=== PATIENT | female | born 1965 | race Caucasian/White ===

== ENCOUNTER → 2018-02-18 | Outpatient (CLI) | payer BC ==
--- NOTE | 2018-02-20 11:25 | MM ---
Reason for exam: screening (asymptomatic). Last mammogram was performed 3 years and 4 months ago. Physical Findings: A clinical breast exam by your physician is recommended on an annual basis and results should be correlated with mammographic findings. MG 3D Screening Mammo W/Cad Bilateral CC and MLO view(s) were taken. Prior study comparison: October 16, 2014, bilateral MG screening mammo w CAD. October 12, 2013, bilateral digital screening mammo w/CAD. The breast tissue is heterogeneously dense. This may lower the sensitivity of mammography. There is a new 3mm group of calcifications in the left upper outer quadrant at posterior depth with adjacent focal asymmetry overlying the pectoralis muscle. No suspicious abnormality in the right breast. ASSESSMENT: Incomplete: need additional imaging evaluation, BI-RAD 0 RECOMMENDATION: Special view mammogram of the left breast. [facility] will attempt to contact patient to return for supplemental views.
== END | disposition home or self-care (01) ==
LOC: RADMAMWWP 08:05
PROVIDERS: ATTEND Family Medicine
DX: Z12.31 Encounter for screening mammogram for malignant neoplasm of breast (principal)
CPT/HCPCS: 77063; 77067

== ENCOUNTER → 2018-03-06 | Outpatient (CLI) | payer BC ==
--- NOTE | 2018-03-07 09:02 | MM ---
Reason for exam: additional evaluation requested from abnormal screening. Last mammogram was performed 1 month ago. Physical Findings: Nurse did not find any significant physical abnormalities on exam. MG Work Up Mamm w CAD LT CC with magnification, LM with magnification, and LM view(s) were taken of the left breast. Prior study comparison: February 18, 2018, bilateral MG 3d screening mammo w/cad. October 16, 2014, bilateral MG screening mammo w CAD. There are scattered fibroglandular densities. New elongated mass with layering milk of calcium at the 2-3 o'clock position. Ultrasound recommended. Heterogeneous calcifications 3-4 o'clock are new. These results were verbally communicated with the patient and result sheet given to the patient on 03/06/18. ASSESSMENT: Incomplete: need additional imaging evaluation, BI-RAD 0 RECOMMENDATION: Ultrasound of the left breast. (2-4 o'clock)
--- NOTE | 2018-03-07 09:40 | USB ---
Reason for exam: additional evaluation requested from abnormal screening. US Breast Workup Limited LT Left limited breast ultrasound including focal area of concern, retroareolar and axilla demonstrates a 1.1 x 0.3 x 1.4cm oval, cystic lesion at 3 o'clock, benign finding. These results were verbally communicated with the patient and result sheet given to the patient on 03/06/18. ASSESSMENT: Suspicious, BI-RAD 4 RECOMMENDATION: Stereotactic core biopsy of the left breast. (calcifications) Called Dr. Gutierrez with mammographic findings and has scheduled an appointment for the patient for 03/23/18 at 10:[address] Dong. PRELIMINARY REPORT CALLED AND FAXED TO DR. DONG ON 03/07/18.
== END | disposition home or self-care (01) ==
LOC: RADMAMWWP 14:50
PROVIDERS: ATTEND Family Medicine
DX: R92.8 Other abnormal and inconclusive findings on diagnostic imaging of breast (principal)
CPT/HCPCS: 77065

== ENCOUNTER → 2018-04-14 | Outpatient (CLI) | payer BC ==
[2018-04-14 12:05] VITALS: BP 122/81; PULSE 74; TEMP 97.7; BMI 34.2
--- NOTE | 2018-04-14 12:45 | P.GSHP ---
History of Present Illness H&P Date: 04/14/18 The patient is a 52-year-old white female who on routine mammogram was noted to have an area of calcification in the left breast of concern. She additionally has an area of calcification in the right breast for which magnification views have been recommended. The patient is not felt anything of concern in either breast. The patient has no nipple discharge or changes of concern. Family history: 1. sister; colon, and breast cancer 2. mother: ovarian cancer menarche: 18 : 3, children 3, first at 29, breast fed: all three about 1 year menopause: still having periods but irregular BCP; no Hormones: none social history: smoke: none Alcohol: Occasionally Drugs: Negative Past surgical history: 1. Gallbladder Past medical history: 1. overweight ROS: HEENT: Negative, vertigo Lungs: Negative Heart: Negative GI: Negative : negative - Constitutional Comment: hot flashes Constitutional: Denies chills, Denies fever - EENT Eyes: bilateral as per HPI Ears: deny: decreased hearing, tinnitus - Breasts Breasts: bilateral: as per HPI - Cardiovascular Cardiovascular: Denies chest pain, Denies shortness of breath - Respiratory Respiratory: Denies cough, Denies 7 - Gastrointestinal Gastrointestinal: Denies abdominal pain, Denies diarrhea, Denies nausea, Denies vomiting - Genitourinary (Female) Genitourinary: Denies dysuria, Denies hematuria - Musculoskeletal Comment: no arthritis planter fasciatis - Integumentary Integumentary: Denies pruritus, Denies rash - Neurological Comment: pinch nerve in her back and gets adjusted at chiropractic, this results in numbness and tingling in both of her hands Neurological: Reports numbness, Reports paralysis, Denies weakness - Psychiatric Psychiatric: Denies anxiety, Denies depression - Endocrine Endocrine: Denies fatigue, Denies weight change - Hematologic/Lymphatic Comment: none - Allergic/Immunologic Comment: PCN Allergic/Immunologic: Reports as per HPI Past Medical History History of Any Multi-Drug Resistant Organisms: None Reported Past Surgical History: Cholecystectomy Smoking Status: Never smoker - Past Family History Mother Family Medical History: Cancer Additional Family Medical History / Comment(s): ovarian cancer 1990 Sister(s) Family Medical History: Cancer Additional Family Medical History / Comment(s): BREAST CANCER 2017 Medications and Allergies Home Medications Medication Instructions Recorded Confirmed Type Venlafaxine HCl ER [Effexor Xr] 75 mg PO AC-LUNCH 04/14/18 04/14/18 History Allergies Allergy/AdvReac Type Severity Reaction Status Date / Time Penicillins Allergy Rash/Hives Unverified 04/14/18 12:08 Surgical - Exam Vital Signs Temp Pulse BP Pulse Ox 97.7 F 74 122/81 96 04/14/18 12:02 04/14/18 12:02 04/14/18 12:02 04/14/18 12:02 - General well developed, well nourished, no distress, obese - Eyes normal ocular movement - ENT no hearing loss, no congestion - Neck no masses, trachea midline, no lymphadectomy - Respiratory normal respiratory effort, clear to auscultation - Cardiovascular Rhythm: regular Heart Sounds: normal: S1, S2 - Abdomen Abdomen: soft, non tender, no guarding, no rigid, no rebound - Integumentary no rash - Neurologic no disoriented, no combative - Psychiatric oriented to time, oriented to person, oriented to place, speech is normal, memory intact Results Mammogram reviewed with Dr. Castillo, patient to have stereo biopsy of the left breast, mag views of some calcifications in the right breast which may result and recommendations severe biopsy of the right breast as well Assessment and Plan Assessment: Impression/plan:. 1. Mammographic abnormality left breast. Stero-Biopsy recommended 2. Questionable mammographic change in right breast mag views being obtained possible recommendation for stereo biopsy Plan: 1. Stereotactic biopsy of the left breast 2. Magnification views of the right breast possible recommendation as stereo biopsy of the right breast This and benefits of stereo biopsy were discussed with the patient. These include bleeding infection and inability to biopsy this site. The patient understands and wishes to proceed. Cc: Dr. Gutierrez
--- NOTE | 2018-04-17 07:43 | MM ---
Reason for exam: additional evaluation requested from abnormal screening. Last mammogram was performed 1 month ago. MG 3D Diag Mammo W/Cad RT Spot compression CC, spot compression MLO, and LM view(s) were taken of the right breast. Prior study comparison: March 06, 2018, left breast MG work up mamm w CAD LT. February 18, 2018, bilateral MG 3d screening mammo w/cad. The breast tissue is heterogeneously dense. This may lower the sensitivity of mammography. New regional punctate calcifications upper outer quadrant can be reassessed in 6 months. These results were verbally communicated with the patient and result sheet given to the patient on 04/14/18. ASSESSMENT: Probably benign, BI-RAD 3 RECOMMENDATION: Follow-up diagnostic mammogram of the right breast in 6 months.
== END | disposition home or self-care (01) ==
LOC: WWCWWP 11:54
PROVIDERS: ATTEND Surgery
DX: R92.8 Other abnormal and inconclusive findings on diagnostic imaging of breast (principal)
CPT/HCPCS: 77061; 77065

== ENCOUNTER → 2018-04-27 | Day surgery (SDC) | payer BC ==
[2018-04-27 07:23] VITALS: RESP 16; BMI 34.3
[2018-04-27 08:41] VITALS: BP 132/84; PULSE 77; TEMP 97.7
--- NOTE | 2018-04-27 08:48 | PCN ---
PROCEDURE NOTE The patient is a 52-year-old white female who on routine mammogram was noted to have an area of heterogeneous calcifications in the 3 to 4 o'clock position of the left breast. Radiographs were reviewed and it was recommended that she undergo a left breast stereotactic core biopsy. She additionally had a second area of calcification, which was felt to be non-worrisome in the left breast and in the right breast repeat mammogram in 6 months' time was recommended. On multi-positional examination of the breast, no dominant mass or nodules of concern were identified in either breast. Radiographs were reviewed as stated. The patient was therefore taken to the stereotactic core unit room after risks and benefits of the procedure were discussed with the patient. The approach to identify the lesion was CC from below. The lesion was identified stereotactically. The breast was prepped using Betadine and 1% lidocaine was used to anesthetize the area of the skin. Needle was driven to the correct coordinates and multiple core biopsies were obtained. This was performed with a 9-gauge vacuum assisted core biopsy needle. Radiograph of the specimen revealed that the calcifications were in the specimen. Following this, a SecurMark top-silk top hat body maker was placed. The patient tolerated the procedure in stable condition. No immediate complications were noted. The patient will follow up next week with Dr. Caballero for pathology results. The specimen was sent for pathology. Confirmation that the SecurMark was in the correct place was obtained radiographically. MMODL / IJN: [id number] /
--- NOTE | 2018-04-27 09:35 | MM ---
EXAMINATION TYPE: MG stereo VAD BX LT DATE OF EXAM: 04/27/2018 COMPARISON: Prior mammogram March 06, 2018 and older studies. CLINICAL HISTORY: Abnormal mammogram TECHNIQUE: Stereotactic guided core biopsy of left breast. FINDINGS: The procedure of stereotactic guided core biopsy was explained to the patient. Benefits, alternatives, and risks were discussed. An informed consent was then obtained. The shortness pathway for biopsy was chosen. Shortness pathway was inferior approach. I performed the localization, then surgeon, Dr. Caballero performed the remainder of the procedure. A vacuum assisted biopsy gun was used to obtain multiple core samples. The patient tolerated the procedure well without any immediate complication. The patient was kept in the radiology department for short stay after the procedure and then discharged home in stable condition. Targeted calcifications are identified in specimen mammogram. Post biopsy mammogram shows the clip to appear in satisfactory position relative to the targeted area of concern on the preprocedure images. IMPRESSION: SUCCESSFUL, UNCOMPLICATED STEREOTACTIC GUIDED CORE BIOPSY OF AREA OF CONCERN IN THE LEFT BREAST, FULL PATHOLOGY RESULTS TO FOLLOW. Low index of suspicion noted at time of procedure.(Fairly Benign Morphology) Pathology Results: Benign CORE BIOPSY, LEFT BREAST: Lobular hyperplasia, focal, without atypia. Duct ectasia, lobular dilatation and apocrine metaplasia. An intramammary lymph node is present. Microcalcifications are present. Recommendation Follow up mammogram of the left breast in 6 months. PEGGY
== END ==
LOC: RADMAMWWP 07:05
PROVIDERS: ATTEND Surgery
DX: N62 Hypertrophy of breast (principal); N60.42 Mammary duct ectasia of left breast; N60.82 Other benign mammary dysplasias of left breast; R92.0 Mammographic microcalcification found on diagnostic imaging of breast; Z85.3 Personal history of malignant neoplasm of breast; Z88.1 Allergy status to other antibiotic agents
CPT/HCPCS: 88305; 19081; A4648; J2001

== ENCOUNTER → 2018-05-05 | Outpatient (CLI) | payer BC ==
[2018-05-05 08:40] VITALS: BP 125/78; PULSE 75; TEMP 97.4; BMI 34.3
--- NOTE | 2018-05-05 08:52 | P.PN ---
Progress Note - Text Progress Note Date: 05/05/18 Patient is status post left breast stereotactic core biopsy 54448. Pathology revealed lobular hyperplasia, focal, without atypia, the patient has no complaints. Physical examination: Biopsy site clean and dry minimal ecchymosis Impression: 1. Stereotactic core biopsy benign Plan: 1. Repeat left breast mammogram and physician exam in 6 months time. Cc: David, ([place])
== END | disposition home or self-care (01) ==
LOC: WWCWWP 08:26
PROVIDERS: ATTEND Surgery
DX: Z53.9 Procedure and treatment not carried out, unspecified reason (principal)

== ENCOUNTER 2018-06-14 10:14 | Day surgery (SDC) | payer BC ==
[2018-06-09 13:11] VITALS: BMI 35.5
[~2018-06-14 10:14] MED LIST: LACTATED RINGERS 1,000 ML IV SCH
[2018-06-14 10:35] VITALS: TEMP 97.5
[2018-06-14] MEDS ORDERED: LACTATED RINGERS 1,000 ML IV ONE (10:37)
[2018-06-14] MEDS ORDERED: LIDOCAINE 1% 20 ML VIAL (10MG/ML) FOR IV START INTRADERMA ONE (10:37)
[2018-06-14] MEDS ORDERED: LIDOCAINE 1% INJ 10MG/ML (20 ML MDV) ONE (11:14)
[2018-06-14] MEDS ORDERED: PROPOFOL 10 MG/ML 20 ML VIAL IV ONE (11:14)
--- NOTE | 2018-06-14 11:32 | P.PCN ---
Date of Procedure: 06/14/18 Procedure(s) Performed: BRIEF HISTORY: Patient is a 53-year-old pleasant white female, scheduled for an elective colonoscopy as a part of screening for colorectal neoplasia. PROCEDURE PERFORMED: Colonoscopy. PREOPERATIVE DIAGNOSIS: Screening for colon cancer. IV sedation per Anesthesia. PROCEDURE: After informed consent was obtained, the patient, was brought into the endoscopy unit. IV sedation was administered by Anesthesia under continuous monitoring. Digital rectal examination was normal. Initially the Olympus CF- 160 flexible video colonoscope was then inserted in the rectum, gradually advanced into the cecum without any difficulty. Careful examination was performed as the scope was gradually being withdrawn. Ileocecal valve and the appendiceal orifice were visualized and appeared normal. Prep was excellent. Mucosa of the cecum, ascending colon, transverse colon, descending colon, sigmoid colon, and rectum appeared normal. Scattered sigmoid diverticulosis seen. Retroflexion was performed in the rectum and no lesions were seen. The patient tolerated the procedure well. IMPRESSION: Normal-appearing colon from rectum to cecum with no evidence of colorectal neoplasia. Scattered sigmoid diverticulosis RECOMMENDATIONS: Findings of this examination were discussed with the patient as well as her family. She was advised to have a repeat screening colonoscopy in 10 years.
[2018-06-14 11:36] VITALS: RESP 16
[2018-06-14 12:08] VITALS: BP 136/75; PULSE 78
== END 2018-06-14 12:32 | disposition home or self-care (01) ==
LOC: ORWHC2ENDO 10:14
PROVIDERS: ATTEND Internal Medicine Gastroenterology
DX: Z12.11 Encounter for screening for malignant neoplasm of colon (principal); K57.30 Diverticulosis of large intestine without perforation or abscess without bleeding; J45.909 Unspecified asthma, uncomplicated; I49.3 Ventricular premature depolarization; Z79.899 Other long term (current) drug therapy; Z88.0 Allergy status to penicillin; Z88.1 Allergy status to other antibiotic agents; E66.9 Obesity, unspecified
CPT/HCPCS: 93005; J2001; J2704; G0121

== ENCOUNTER → 2018-11-03 | Outpatient (CLI) | payer BC ==
--- NOTE | 2018-11-07 08:51 | MM ---
Reason for exam: follow-up at short interval from prior study. Last mammogram was performed 7 months ago. History: Family history of breast cancer in sister at age 62. Benign MG stereo VAD BX LT of the left breast, April 27, 2018. Physical Findings: Nurse did not find any significant physical abnormalities on exam. MG 3D Diag Mammo W/Cad LT CC, MLO, and spot compression CC view(s) were taken of the left breast. Prior study comparison: April 14, 2018, right breast MG 3d diag mammo w/cad RT. March 06, 2018, left breast MG work up mamm w CAD LT. There are scattered fibroglandular densities. Previous left breast mammotome biopsy. No significant new findings when compared with prior studies. These results were verbally communicated with the patient and result sheet given to the patient on 11/03/18. ASSESSMENT: Benign, BI-RAD 2 RECOMMENDATION: Return to routine screening mammogram schedule for both breasts.
== END ==
LOC: RADMAMWWP 08:30
PROVIDERS: ATTEND Surgery
DX: R92.8 Other abnormal and inconclusive findings on diagnostic imaging of breast (principal)
CPT/HCPCS: 77061; 77065

== ENCOUNTER → 2018-11-10 | Outpatient (CLI) | payer BC ==
[2018-11-10 15:51] VITALS: BP 124/84; PULSE 76; RESP 18; TEMP 97.8; BMI 38.7
--- NOTE | 2018-11-10 16:17 | P.PN ---
Subjective Progress Note Date: 11/10/18 Principal diagnosis: Status post left breast stereotactic biopsy April 2018 Brisa is a 53-year-old white female who is status post left breast are detected core biopsy in April 2018. The pathology was benign at that time. The patient had a left breast mammogram done October 2018 and this is felt to be benign BIRADS 2. Bilateral screening mammogram to be performed on February 2019. The patient has no concerns about her breast at this time. Family History: 1. sister: colon and breast cancer 2. mother: ovarian cancer Past Medical History: weight gain Past Surgical History: 1. gallbaldder Objective - Vital Signs Vital signs: Vital Signs Temp 97.8 F 11/10/18 15:48 Pulse 76 11/10/18 15:48 Resp 18 11/10/18 15:48 BP 124/84 11/10/18 15:48 Pulse Ox 99 11/10/18 15:48 Intake & Output 11/09/18 11/10/18 11/10/18 18:59 06:59 18:59 Weight 108.862 kg - Constitutional General appearance: Present: obese - EENT Eyes: Present: EOMI ENT: Present: hearing grossly normal - Neck Neck: Present: normal ROM - Respiratory Respiratory: bilateral: CTA - Cardiovascular Rhythm: regular Heart sounds: normal: S1, S2 - Gastrointestinal General gastrointestinal: Present: soft - Integumentary Integumentary Comment(s): normal turgor - Psychiatric Psychiatric: Present: A&O x's 3, appropriate affect, intact judgment & insight - Allied health notes Allied Health Notes Comment(s): breast exam: right breast: multipositional exam of the right breast no masses right axilla: no adenopathy of concern left breast: multipositional exam no masses left axilla: no adenopathy of concern Assessment and Plan Assessment: Impression: 1. fibrocystic breast bilateral Plan: 1. bilateral mammogram February 2019 with exam CC: Brenda
== END | disposition home or self-care (01) ==
LOC: WWCWWP 15:38
PROVIDERS: ATTEND Surgery
DX: Z53.9 Procedure and treatment not carried out, unspecified reason (principal)

== ENCOUNTER → 2019-05-10 | Outpatient (CLI) | payer BC ==
--- NOTE | 2019-05-10 10:22 | MM ---
Reason for exam: screening (asymptomatic). Last mammogram was performed 6 months ago. History: Family history of breast cancer in sister at age 62. Benign MG stereo VAD BX LT of the left breast, April 27, 2018. Physical Findings: A clinical breast exam by your physician is recommended on an annual basis and results should be correlated with mammographic findings. MG 3D Screening Mammo W/Cad Bilateral CC and MLO view(s) were taken. Prior study comparison: November 03, 2018, left breast MG 3d diag mammo w/cad LT. April 14, 2018, right breast MG 3d diag mammo w/cad RT. The breast tissue is heterogeneously dense. This may lower the sensitivity of mammography. No suspicious abnormality. Left biopsy marker noted. No significant changes when compared with prior studies. ASSESSMENT: Negative, BI-RAD 1 RECOMMENDATION: Routine screening mammogram of both breasts in 1 year.
== END | disposition home or self-care (01) ==
LOC: RADMAMWWP 06:58
PROVIDERS: ATTEND Surgery
DX: Z12.31 Encounter for screening mammogram for malignant neoplasm of breast (principal)
CPT/HCPCS: 77063; 77067

== ENCOUNTER → 2019-06-28 | Outpatient (CLI) | payer BC ==
[2019-06-28 15:40] VITALS: BP 136/83; PULSE 91; RESP 16; TEMP 97.7; BMI 41.9
--- NOTE | 2019-06-28 16:10 | P.PN ---
Subjective Progress Note Date: 06/28/19 Brisa is a 54-year-old white female status post area biopsy of the left breast approximately a year ago. Pathology was benign. She subsequently had a bilateral mammogram performed on this was benign BIRADS 1. An routine screening of both breasts in 1 year was recommended. The patient has no co mplaints of pain masses skin changes or nipple discharge in her breast at this time. Family history: 1. sister; colon, and breast cancer 2. mother: ovarian cancer menarche: 18 : 3, children 3, first at 29, breast fed: all three about 1 year menopause: still having periods but irregular BCP; no Hormones: none social history: smoke: none Alcohol: Occasionally Drugs: Negative Past surgical history: 1. Gallbladder Past medical history: 1. overweight ROS: HEENT: Negative, vertigo Lungs: Negative Heart: Negative GI: Negative : negative - Constitutional Comment: hot flashes Constitutional: Denies chills, Denies fever - EENT Eyes: bilateral as per HPI Ears: deny: decreased hearing, tinnitus - Breasts Breasts: bilateral: as per HPI - Cardiovascular Cardiovascular: Denies chest pain, Denies shortness of breath - Respiratory Respiratory: Denies cough - Gastrointestinal Gastrointestinal: Denies abdominal pain, Denies diarrhea, Denies nausea, Denies vomiting - Genitourinary (Female) Genitourinary: Denies dysuria, Denies hematuria - Musculoskeletal Comment: no arthritis planter fasciatis improved - Integumentary Integumentary: Denies pruritus, Denies rash - Neurological Comment: pinch nerve in her back and gets adjusted at chiropractic, this results in numbness and tingling in both of her hands Neurological: Reports numbness, Reports paralysis, Denies weakness - Psychiatric Psychiatric: anxiety, depression; related to friend dying - Endocrine Endocrine: Denies fatigue, Denies weight change - Hematologic/Lymphatic Comment: none - Allergic/Immunologic Comment: PCN Allergic/Immunologic: Reports as per HPI Past Medical History History of Any Multi-Drug Resistant Organisms: None Reported Past Surgical History: Cholecystectomy Smoking Status: Never smoker - Past Family History Mother Family Medical History: Cancer Additional Family Medical History / Comment(s): ovarian cancer 1990 Sister(s) Family Medical History: Cancer Additional Family Medical History / Comment(s): BREAST CANCER 2018 Objective - Vital Signs Vital signs: Vital Signs Temp 97.7 F 06/28/19 15:35 Pulse 91 06/28/19 15:35 Resp 16 06/28/19 15:35 BP 136/83 06/28/19 15:35 Pulse Ox 98 06/28/19 15:35 Intake & Output 06/27/19 06/28/19 06/28/19 18:59 06:59 18:59 Weight 117.934 kg - Exam BMI 42 - Constitutional General appearance: Present: obese - EENT Eyes: Present: EOMI ENT: Present: hearing grossly normal - Neck Neck: Present: normal ROM - Respiratory Respiratory: bilateral: CTA - Cardiovascular Rhythm: regular Heart sounds: normal: S1, S2 - Gastrointestinal General gastrointestinal: Present: soft - Integumentary Integumentary: Present: normal turgor - Musculoskeletal Musculoskeletal: Present: gait normal - Psychiatric Psychiatric: Present: A&O x's 3, appropriate affect, intact judgment & insight - Additional findings Additional findings: breast exam: right breast: Multiple positional exam no dominant masses or nodules of concern Right axilla: No adenopathy of concern Left breast: Multiple positional exam no dominant masses or nodules of concern Left axilla: No adenopathy of concern Assessment and Plan Assessment: Impression: 1. Patient status post stereotactic core biopsy of the left breast in the past this was benign 2. Recent mammogram bilateral BIRADS 1 3. Fibrocystic breast changes 4. BMI 42 5. depression Plan: 1. Repeat bilateral mammogram in 1 year 2. We have recommended weight reduction Cc: Dr. Gutierrez
== END | disposition home or self-care (01) ==
LOC: WWCWWP 15:20
PROVIDERS: ATTEND Surgery
DX: Z53.9 Procedure and treatment not carried out, unspecified reason (principal)

== ENCOUNTER → 2019-09-01 | Outpatient (CLI) | payer BC ==
--- NOTE | 2019-09-01 17:53 | MR ---
EXAMINATION TYPE: MR knee LT wo con DATE OF EXAM: 09/01/2019 COMPARISON: None HISTORY: Left knee pain TECHNIQUE: Multiplanar, multisequence imaging of the left knee is performed without IV contrast. FINDINGS: There is moderate knee joint effusion. There is slight waviness of the anterior cruciate ligament. Th e posterior cruciate ligament appears intact. There is 3 x 1 cm popliteal cyst. There is narrowing of the medial joint space. There is spurring of the medial femoral and tibial condyles. There is increased signal within the posterior horn of the me dial meniscus. There is small vertical defect through the anterior horn of the lateral meniscus. Patella appears int act. I see no focal bone destruction. IMPRESSION: There is probably a partial tear of the anterior cruciate ligament. Moderate knee joint effusion and popliteal cyst. Intrasubstance tear of the posterior horn medial meniscus without extension to the articular surface. Small vertical tear of the anterior horn lateral meniscus. No fracture. Mild osteoarthritic narrowin g of the medial joint space.
== END | disposition home or self-care (01) ==
LOC: RADMRIMAIN 11:43
PROVIDERS: ATTEND Orthopaedic Surgery
DX: S83.242A Other tear of medial meniscus, current injury, left knee, initial encounter (principal); S83.282A Other tear of lateral meniscus, current injury, left knee, initial encounter; M17.12 Unilateral primary osteoarthritis, left knee

== ENCOUNTER → 2020-05-12 | Outpatient (CLI) | payer BC ==
--- NOTE | 2020-05-15 14:50 | MM ---
Reason for exam: screening (asymptomatic). Last mammogram was performed 1 year ago. History: Family history of breast cancer in sister at age 62. Benign MG stereo VAD BX LT of the left breast, April 27, 2018. Took hormonal contraceptives for 6 months. Physical Findings: A clinical breast exam by your physician is recommended on an annual basis and results should be correlated with mammographic findings. MG 3D Screening Mammo W/Cad Bilateral CC and MLO view(s) were taken. Prior study comparison: May 10, 2019, bilateral MG 3d screening mammo w/cad. November 03, 2018, left breast MG 3d diag mammo w/cad LT. There are scattered fibroglandular densities. Finding: There are indeterminate calcifications in the 12 o'clock position of the right breast 5cm from the nipple with density. New finding since May 10, 2019 and November 03, 2018. ASSESSMENT: Incomplete: need additional imaging evaluation, BI-RAD 0 RECOMMENDATION: Special view mammogram of the right breast. [facility] will attempt to contact patient to return for supplemental views.
== END | disposition home or self-care (01) ==
LOC: RADMAMWWP 07:26
PROVIDERS: ATTEND Surgery
DX: Z12.31 Encounter for screening mammogram for malignant neoplasm of breast (principal)
CPT/HCPCS: 77063; 77067

== ENCOUNTER → 2020-05-26 | Outpatient (CLI) | payer BC ==
--- NOTE | 2020-05-27 11:04 | MM ---
Reason for exam: additional evaluation requested from abnormal screening. Last mammogram was performed less than 1 month ago. History: Family history of breast cancer in sister at age 62. Benign MG stereo VAD BX LT of the left breast, April 27, 2018. Took hormonal contraceptives for 6 months. Physical Findings: Nurse did not find any significant physical abnormalities on exam. MG 3D Work Up W/Cad RT CC with magnification, LM with magnification, and LM view(s) were taken of the right breast. Prior study comparison: May 12, 2020, bilateral MG 3d screening mammo w/cad. May 10, 2019, bilateral MG 3d screening mammo w/cad. Finding: There are persistent coarse heterogeneous, regional and grouped calcifications in the upper outer quadrant, middle position of the right breast. These results were verbally communicated with the patient and result sheet given to the patient on 05/26/20. ASSESSMENT: Incomplete: need additional imaging evaluation, BI-RAD 0 RECOMMENDATION: Stereotactic core biopsy of the right breast. (2 sites) Called office with mammographic findings and has scheduled an appointment for the patient for 07/03/20 at 2:[address] Caballero. Biopsy scheduled for 06/19/20 at 8:00. PRELIMINARY REPORT CALLED AND FAXED TO DR. CABALLERO ON 05/27/20.
== END | disposition home or self-care (01) ==
LOC: RADMAMWWP 07:23
PROVIDERS: ATTEND Surgery
DX: R92.8 Other abnormal and inconclusive findings on diagnostic imaging of breast (principal)
CPT/HCPCS: 77061; 77065

== ENCOUNTER → 2020-06-27 | Day surgery (SDC) | payer BC ==
[2020-06-27 07:55] VITALS: RESP 16
--- NOTE | 2020-06-27 09:26 | P.PCN ---
Date of Procedure: 06/27/20 Preoperative Diagnosis: Microcalcifications of concern 2 sites in the right breast Postoperative Diagnosis: Same Procedure(s) Performed: Stereotactic core biopsy of 2 sites in the right breast Anesthesia: local Surgeon: Anahi Caballero Pathology: other (Breast tissue, both sites had calcifications which were of concern noted in the specimens) Condition: stable Disposition: same day Indications for Procedure: Mammogram revealing microcalcifications of concern at 2 sites in the right breast Operative Findings: Microcalcifications of concern noted in the radiographic specimen at both sites in the right breast Description of Procedure: The patient is a 55-year-old white female who was noted to have 2 areas of microcalcifications of concern in her right breast. It was recommended she undergo stereotactic core biopsy of both of these sites. Risk and benefits of the procedure were discussed with the patient. Alternatives such as watchful waiting open biopsy were not recommended. The patient agreed and wished to proceed. The patient was taken to the [facility] to core biopsy room. She was positioned prone on the biopsy table. A film was obtained. A lateral to medial approach was utilized. Both sites were visualized. The posterior site was approached initially as this was a fainter area of calcification. The area was targeted. The breast was prepped using Betadine. 15 mL of 1% lidocaine were used to anesthetize the area of concern. A 9-gauge vacuum-assisted core rotating biopsy needle was driven to the correct coordinates. The needle was fired. Post fire film revealed the needle to be in the correct location. 12 specimens were obtained. Radiograph of the specimen revealed the area of concern had been sampled with microcalcifications in the specimen. A secure phoebe top hat maker was placed. The patient was repositioned for the second site. Again a lateral to medial approach was utilized. A film was obtained in the area of concern was identified. The area was targeted. The breast was prepped using Betadine. 15 mL of 1% lidocaine was used to anesthetize the area of concern. A 9-gauge vacuum-assisted core rotating biopsy needle was driven to the correct coordinates. The needle was fired. Post fire films revealed the needle being the correct location. 7 specimens were obtained. Radiograph of the specimens revealed the area of concern about sampled with microcalcifications in the specimen. A 20 phoebe clip was placed to phoebe the area. The patient tolerated procedure in stable condition. Specimens were sent to pathology. Patient will follow-up with Dr. Gilliland in 1 week
[2020-06-27 09:33] VITALS: BP 128/85; PULSE 81; TEMP 98.1
--- NOTE | 2020-06-27 15:12 | MM ---
EXAMINATION TYPE: MG stereo VAD BX addl RT, MG stereo VAD BX RT DATE OF EXAM: 06/27/2020 COMPARISON: NONE CLINICAL HISTORY: Abnormal right mammogram TECHNIQUE: Stereotactic guided core biopsy of right breast x2. FINDINGS: The procedure of stereotactic guided core biopsy was explained to the patient. Benefits, a lternatives, and risks were discussed. An informed consent was then obtained. The shortness pathway for biopsy was chosen. Shortness pathway was lateral to medial approach. I per formed the localization for 2 discrete groupings of calcifications, then surgeon, Dr. Talat linton ormed the remainder of the procedure. A vacuum assisted biopsy gun was used to obtain multiple core samples of each grouping the. The patient tolerated the procedure well without any immediate complication. The patient was kept in the radiology department for short stay after the procedure and then discharged home in stable condi tion. Targeted calcifications are identified in specimen mammogram. Post biopsy digital mammogram s hows the clips to appear in satisfactory position relative to the targeted area of concern on the pre procedure images. IMPRESSION: SUCCESSFUL, UNCOMPLICATED STEREOTACTIC GUIDED CORE BIOPSY OF AREAS OF CONCERN IN THE right BREAST, FU LL PATHOLOGY RESULTS TO FOLLOW.
== END ==
LOC: RADMAMWWP 07:24
PROVIDERS: ATTEND Surgery
DX: N60.11 Diffuse cystic mastopathy of right breast (principal); N60.81 Other benign mammary dysplasias of right breast
CPT/HCPCS: 88305; 88342; 19081; 19082; A4648; J2001

== ENCOUNTER → 2020-07-03 | Outpatient (CLI) | payer BC ==
[2020-07-03 14:54] VITALS: BP 122/80; PULSE 75; RESP 18; TEMP 98.1
--- NOTE | 2020-07-03 15:31 | P.PN ---
Subjective Progress Note Date: 07/03/20 Principal diagnosis: Atypia on stereotactic core biopsy right breast Brisa is a 55-year-old white female [place] [address]. On this screening it was recommended special views of the right [place]. [place] [address]. This revealed some calcifications for which stereotactic core biopsy was recommended. 2 areas of calcifications were sampled. [place] [address]. The posterior calcifications revealed focal atypical hyperplasia and the anterior calcifications were benign fibrocystic changes. The patient has done well since her biopsy. She has no complaints related to the biopsy. Of importance is the fact that the patient underwent a left breast biopsy approximately one year ago which revealed lobular hyperplasia, no atypia. [place] [address]. Family history: 1. sister; colon, and breast cancer 2. mother: ovarian cancer menarche: 18 : 3, children 3, first at 29, breast fed: all three about 1 year menopause: still having periods but irregular BCP; no Hormones: none social history: smoke: none Alcohol: Occasionally Drugs: Negative Past surgical history: 1. Gallbladder Past medical history: 1. overweight - Constitutional Comment: hot flashes Constitutional: Denies chills, Denies fever - EENT Eyes: bilateral as per HPI Ears: deny: decreased hearing, tinnitus - Breasts Breasts: bilateral: as per HPI - Cardiovascular Cardiovascular: Denies chest pain, Denies shortness of breath - Respiratory Respiratory: Denies cough - Gastrointestinal Gastrointestinal: Denies abdominal pain, Denies diarrhea, Denies nausea, Denies vomiting - Genitourinary (Female) Genitourinary: Denies dysuria, Denies hematuria - Musculoskeletal Comment: no arthritis planter fasciatis improved - Integumentary Integumentary: Denies pruritus, Denies rash - Neurological Comment: pinch nerve in her back and gets adjusted at chiropractic, this results in numbness and tingling in both of her hands Neurological: Reports numbness, Reports paralysis, Denies weakness - Psychiatric Psychiatric: anxiety, depression; related to friend dying - Endocrine Endocrine: Denies fatigue, Denies weight change - Hematologic/Lymphatic Comment: none - Allergic/Immunologic Comment: PCN Allergic/Immunologic: Reports as per HPI Objective - Vital Signs Vital signs: Vital Signs Temp 98.1 F 07/03/20 14:51 Pulse 75 07/03/20 14:51 Resp 18 07/03/20 14:51 BP 122/80 07/03/20 14:51 Pulse Ox 98 07/03/20 14:51 Intake & Output 07/02/20 07/03/20 07/03/20 18:59 06:59 18:59 Weight 119.295 kg - Exam BMI 42.4 - Constitutional General appearance: Present: obese - EENT Eyes: Present: EOMI ENT: Present: hearing grossly normal - Neck Neck: Present: normal ROM - Respiratory Respiratory: bilateral: CTA - Cardiovascular Rhythm: regular Heart sounds: normal: S1, S2 - Gastrointestinal General gastrointestinal: Present: normal bowel sounds, soft - Integumentary Integumentary: Present: normal turgor - Musculoskeletal Musculoskeletal: Present: gait normal - Psychiatric Psychiatric: Present: A&O x's 3, appropriate affect, intact judgment & insight - Additional findings Additional findings: breast exam: BRA: 38B inspection: grade 3 ptosis bilateral Palpation: Right breast: Multi-positional exam fibrocystic changes, mild ecchymosis from recent stereo biopsy, no dominant masses or nodules of concern Right axilla: No adenopathy of concern Left breast: Multi-positional exam fibrocystic changes, no dominant masses or nodules of concern Left axilla: No adenopathy of concern Assessment and Plan Assessment: Impression: 1. Right breast posterior lesion atypia on stereotactic core biopsy 2. Fibrocystic breast changes 3. Family history of cancer Plan: 1. Right breast needle localization excisional biopsy of area of atypia, crescent mastopexy, Onikul plastic tissue transfer CC: Dr. Gutierrez Risks and benefits of procedure discussed with the patient. These include but are not limited to bleeding infection reaction to the anesthetic. Patient understands and wishes to proceed. Additionally she understands that there is possibility of the lesion could be missed this the needle could slip of the lesion cannot be adequately removed and this may require further surgery. If this were to be a malignancy additionally it could require further surgery. encounter 25 minutes, > 50% of time in planning and counselling
== END | disposition home or self-care (01) ==
LOC: WWCWWP 14:00
PROVIDERS: ATTEND Surgery
DX: Z53.9 Procedure and treatment not carried out, unspecified reason (principal)

== ENCOUNTER → 2021-02-26 | Outpatient (CLI) | payer BC | END | disposition home or self-care (01) | LOC: RADMRIMAIN 15:28 | PROVIDERS: ATTEND Surgery | DX: Z53.9 Procedure and treatment not carried out, unspecified reason (principal) ==

== ENCOUNTER → 2021-02-26 | Outpatient (CLI) | payer BC | END | disposition home or self-care (01) | LOC: RADMAMWWP 15:21 | PROVIDERS: ATTEND Surgery | DX: Z53.9 Procedure and treatment not carried out, unspecified reason (principal) ==

== ENCOUNTER → 2021-03-10 | Outpatient (CLI) | payer BC ==
--- NOTE | 2021-03-11 08:31 | MR ---
MRI CERVICAL SPINE: CLINICAL HISTORY: Radiculopathy. Neck pain with pain and numbness in hands for 10 years. TECHNIQUE: Multiplanar, multisequence imaging of the cervical spine is performed without IV contrast. COMPARISON: None. FINDINGS: Sagittal images of the cervical spine show the craniocervical junction to appear within nor mal limits. The cervical and upper thoracic spinal cord is normal in course, caliber, and signal. Sl ight grade 1 retrolisthesis C5 on C6. The vertebral body and intravertebral disk heights are normal. The bone marrow signal intensity is within normal limits. Axial images show C2-C3 level to appear within normal limits. Axial images at C3-C4 level shows some uncovertebral facet degenerative changes bilaterally causing a symmetric mild left-sided neural foraminal narrowing. Axial images at C4-C5 level show uncovertebral facet degenerative changes bilaterally causing mild-to -moderate left-sided neural foraminal narrowing. Axial images at C5-C6 level shows subtle spondylolisthesis with broad-based left spur disc complex mi ldly effacing the anterolateral thecal sac, mild left-sided neural foraminal narrowing is present. Axial images at C6-C7 level show focal central disc protrusion effacing anterior thecal sac, patent b ilateral neural foramina. Axial images at C7-T1 level appear within normal limits. IMPRESSION: Spondylolisthesis C5-C6 level. Multilevel degenerative changes as detailed above, largest disc herniation noted C6-C7 level.
== END | disposition home or self-care (01) ==
LOC: RADMRIMAIN 15:59
PROVIDERS: ATTEND Physician Assistant
DX: M50.123 Cervical disc disorder at C6-C7 level with radiculopathy (principal); M47.22 Other spondylosis with radiculopathy, cervical region; M43.12 Spondylolisthesis, cervical region; M99.71 Connective tissue and disc stenosis of intervertebral foramina of cervical region
CPT/HCPCS: 72141

== ENCOUNTER 2021-03-16 00:45 | Emergency (ER) | payer BC ==
[2021-03-16 00:58] VITALS: TEMP 99.2
[2021-03-16] MEDS ORDERED: SODIUM CHLORIDE 0.9% 1,000 ML IV STA ×2 (01:20→01:21)
[2021-03-16] MEDS ORDERED: FAMOTIDINE 20 MG/2 ML VIAL IV STA (01:20)
[2021-03-16] MEDS ORDERED: methylPREDNISolone SOD SUCCI 125 MG/2 ML VIAL IV STA (01:20)
[2021-03-16] MEDS ORDERED: LORazepam 2 MG/ML INJ IV STA (01:20)
--- NOTE | 2021-03-16 01:28 | ED ---
Allergic Reaction HPI - General Chief complaint: Allergic Reaction Stated complaint: Allergic Reaction Time Seen by Provider: 03/16/21 01:06 Source: patient Mode of arrival: ambulatory Limitations: no limitations - Related Data Home Medications Medication Instructions Recorded Confirmed Venlafaxine HCl ER [Effexor Xr] 75 mg PO 1700 04/14/18 07/03/20 Meloxicam [Mobic] 7.5 mg PO HS 06/28/19 07/03/20 Cholecalciferol [Vitamin D3] 2,000 unit PO HS 06/11/20 07/03/20 Cyanocobalamin (Vitamin B-12) 5,000 mcg PO HS 06/11/20 07/03/20 [Vitamin B-12] Glucosamine/Chondr Hussein A Sod [Osteo 1 each PO HS 06/11/20 07/03/20 Bi-Flex Caplet] [place]-3 Fatty Acids/Fish Oil [Fish 1 each PO HS 07/03/20 07/03/20 Oil 1,000 mg Softgel] Previous Rx's Medication Instructions Recorded Famotidine [Pepcid] 20 mg PO BID #20 tablet 03/16/21 hydrOXYzine HCL [Atarax] 25 mg PO TID PRN #15 tab 03/16/21 predniSONE 50 mg PO DAILY #5 tab 03/16/21 Allergies Allergy/AdvReac Type Severity Reaction Status Date / Time erythromycin base Allergy Rash/Hives Verified 03/16/21 00:58 [From Erythrocin] Penicillins Allergy Rash/Hives Verified 03/16/21 00:58 Review of Systems ROS Statement: Those systems with pertinent positive or pertinent negative responses have been documented in the HPI. ROS Other: All systems not noted in ROS Statement are negative. Past Medical History Past Medical History: Asthma, Pneumonia Additional Past Medical History / Comment(s): pnuemonia as a child; History of Any Multi-Drug Resistant Organisms: None Reported Past Surgical History: Breast Surgery, Cholecystectomy Additional Past Surgical History / Comment(s): left breast biopsy; Past Anesthesia/Blood Transfusion Reactions: Motion Sickness Past Psychological History: Anxiety, Panic Disorder Smoking Status: Never smoker Past Alcohol Use History: Rare Past Drug Use History: None Reported - Past Family History Mother Family Medical History: Cancer Additional Family Medical History / Comment(s): ovarian Sister(s) Family Medical History: Cancer Additional Family Medical History / Comment(s): BREAST General Exam Limitations: no limitations Course Vital Signs 03/16/21 00:56 Temperature 99.2 F Pulse Rate 140 H Respiratory 24 Rate Blood Pressure 124/66 O2 Sat by Pulse 94 L Oximetry Disposition Clinical Impression: Allergic reaction to drug, Urticaria Instructions (If sedation given, give patient instructions): Urticaria (ED) Prescriptions: hydrOXYzine HCL [Atarax] 25 mg PO TID PRN #15 tab PRN Reason: Itching Famotidine [Pepcid] 20 mg PO BID #20 tablet predniSONE 50 mg PO DAILY #5 tab Is patient prescribed a controlled substance at d/c from ED?: No Referrals: Klaudia Gutierrez DO [Primary Care Provider] - 1-2 days
[2021-03-16] MEDS ORDERED: hydrOXYzine HCL 25 MG TAB PO ONE (01:30)
[2021-03-16 03:40] VITALS: BP 139/82; PULSE 88; RESP 18
== END 2021-03-16 03:00 ==
LOC: EC 00:45
DX: L50.0 Allergic urticaria (principal); J45.909 Unspecified asthma, uncomplicated; F41.9 Anxiety disorder, unspecified; Z88.0 Allergy status to penicillin
CPT/HCPCS: 96374; 96375; 99283

== ENCOUNTER → 2021-03-26 | Outpatient (CLI) | payer BC ==
--- NOTE | 2021-03-26 10:00 | MM ---
Reason for exam: follow-up at short interval from prior study. Last mammogram was performed 10 months ago. History: Patient is postmenopausal and has history of high-risk lesion on a previous biopsy at age 55. Family history of breast cancer in sister at age 62. High risk MG stereo VAD BX addl RT of the right breast, June 27, 2020. High risk MG stereo VAD BX RT of the right breast, June 27, 2020. Benign MG stereo VAD BX LT of the left breast, April 27, 2018. Took hormonal contraceptives for 6 months. Physical Findings: Nurse did not find any significant physical abnormalities on exam. MG 3D Diag Mammo W/Cad RT CC and MLO view(s) were taken of the right breast. Prior study comparison: May 12, 2020, bilateral MG 3d screening mammo w/cad. May 10, 2019, bilateral MG 3d screening mammo w/cad. Calcifications. Previous mammotome biopsy in the right breast. No significant new findings when compared with previous films. These results were verbally communicated with the patient and result sheet given to the patient on 03/26/21. ASSESSMENT: Benign, BI-RAD 2 RECOMMENDATION: Return to routine screening mammogram schedule for both breasts.
== END | disposition home or self-care (01) ==
LOC: RADMAMWWP 08:38
PROVIDERS: ATTEND Surgery
DX: R92.1 Mammographic calcification found on diagnostic imaging of breast (principal); Z80.3 Family history of malignant neoplasm of breast; Z78.0 Asymptomatic menopausal state
CPT/HCPCS: 77061; 77065

== ENCOUNTER → 2021-04-04 | Outpatient (CLI) | payer BC ==
[2021-04-04 12:09] LABS: Basophils # (A) 0.09 X 10*3/uL (0.00-0.10); Basophils % (A) 1.1 %; Eosinophils # (A) 0.15 X 10*3/uL (0.04-0.35); Eosinophils % (A) 1.9 %; HCT 40.5 % (37.2-46.3); HGB 12.9 g/dL (12.0-15.0); Lymphocytes # (A) 2.13 X 10*3/uL (0.90-5.00); Lymphocytes % (A) 26.9 %; MCHC 31.9 g/dL (32.0-37.0); MCV 94.2 fL (80.0-97.0); Mean Platelet Volume 9.6 fL (9.5-12.2); Monocytes # (A) 0.58 X 10*3/uL (0.20-1.00); Monocytes % (A) 7.3 %; Neutrophils # (A) 4.93 X 10*3/uL (1.80-7.70); Neutrophils % (A) 62.3 %; Platelet Count 266 X 10*3/uL (140-440); RDW 13.5 % (11.5-14.5); WBC 7.92 X 10*3/uL (4.50-10.00)
[2021-04-04 13:06] LABS: African American GFR (CKD) 114.6 (60.0-200.0); Albumin/Globulin Ratio 1.6 (1.60-3.17); Anion Gap 7.4 mmol/L (4.00-12.00); BUN/Creat Ratio 22.86 Ratio (12.00-20.00); Calcium 9.4 mg/dL (8.7-10.3); Carbon Dioxide 28.6 mmol/L (21.6-31.8); Chol/HDL Ratio 3.44; Globulin 2.5 g/dL (1.6-3.3); LDL Cholesterol,Calculated 128.4 mg/dL (0.0-131.0); Non-African American GFR(CKD) 98.9 (60.0-200.0); Potassium 4.8 mmol/L (3.5-5.5); Total Bilirubin 0.5 mg/dL (0.3-1.2); Total Protein 6.5 g/dL (6.2-8.2); VLDL Calculation 20.6 mg/dL (5.00-40.00)
== END | disposition home or self-care (01) ==
LOC: LABWHC1 08:08
PROVIDERS: ATTEND Nurse Practitioner Family
DX: Z13.6 Encounter for screening for cardiovascular disorders (principal); R60.0 Localized edema
CPT/HCPCS: 36415; 80053; 80061; 85025

== ENCOUNTER → 2021-12-08 | Outpatient (CLI) | payer BC ==
--- NOTE | 2021-12-10 11:05 | MM ---
Reason for exam: screening (asymptomatic). Last mammogram was performed 8 months ago. History: Patient is postmenopausal and has history of high-risk lesion on a previous biopsy at age 55. Family history of breast cancer in sister at age 62. High risk MG stereo VAD BX addl RT of the right breast, June 27, 2020. High risk MG stereo VAD BX RT of the right breast, June 27, 2020. Benign MG stereo VAD BX LT of the left breast, April 27, 2018. Took hormonal contraceptives for 6 months. Physical Findings: A clinical breast exam by your physician is recommended on an annual basis and results should be correlated with mammographic findings. MG 3D Screening Mammo W/Cad Bilateral CC and MLO view(s) were taken. Prior study comparison: March 26, 2021, right breast MG 3d diag mammo w/cad RT. May 26, 2020, right breast MG 3d work up w/cad RT. There are scattered fibroglandular densities. Previous mammotome biopsy in the right and left breast. No significant changes when compared with prior studies. ASSESSMENT: Benign, BI-RAD 2 RECOMMENDATION: Routine screening mammogram of both breasts in 1 year.
== END | disposition home or self-care (01) ==
LOC: RADMAMWWP 16:26
PROVIDERS: ATTEND Surgery
DX: Z12.31 Encounter for screening mammogram for malignant neoplasm of breast (principal); Z80.3 Family history of malignant neoplasm of breast; Z78.0 Asymptomatic menopausal state
CPT/HCPCS: 77063; 77067

== ENCOUNTER → 2022-12-29 | Outpatient (CLI) | payer BC ==
--- NOTE | 2022-12-29 11:30 | BD ---
EXAMINATION TYPE: Axial Bone Density DATE OF EXAM: 12/29/2022 CLINICAL HISTORY: 57 years old Female. ICD-10 CODE: Z79.890 HORMONE REPLACEMENT THERAPY Height: 65.25 Weight: 240 FRAX RISK QUESTIONS: History of Fracture in Adulthood: no Secondary Osteoporosis: no Rheumatoid Arthritis: no RISK FACTORS HISTORY OF: Family History of Osteoporosis: yes, mother Active: yes Diet low in dairy products/other sources of calcium: no Postmenopausal woman: yes Lost more than 2 inches in height since high school: no Frequent falls: no Poor Health: no MEDICATIONS: Additional Medications: yes anastrozole treatment 2 year, anti depressant, Additional History: yes ADH EXAM MEASUREMENTS: Bone mineral densitometry was performed using the [email or web address] System. Bone mineral density as measured about the Lumbar spine is: ----- L1-L4(G/cm2): 1.036 T Score Values are as follows: ----- L1: -2.1 ----- L2: -1.7 ----- L3: -0.5 ----- L4: -0.7 ----- L1-L4: -1.2 Z Score Values are as follows: ----- L1: -2.4 ----- L2: -2.0 ----- L3: -0.9 ----- L4: -1.0 ----- L1-L4: -1.5 Bone mineral density baseline Bone mineral density about the R hip (g/cm2): 1.031 Bone mineral density about the L hip (g/cm2): 0.995 T Score values are as follows: -----R Neck: -0.7 -----L Neck: -1.0 -----R Total: 0.2 -----L Total: -0.1 Z Score values are as follows: -----R Neck: -0.4 -----L Neck: -0.8 -----R Total: 0.0 -----L Total: -0.3 Bone mineral density baseline FRAX%s: The graph provided illustrates a 5.3% chance for a major osteoporotic fx and a 0.2% chance fo r the hips probability for fx in 10 years time. IMPRESSION: Osteopenia (T Score between -2.5 and -1). There is slightly increased risk of fracture and the patient may be considered for treatment. Re-Screen 2-5 years. NOTE: T-SCORE=SD OF THE YOUNG ADULT MEAN.
--- NOTE | 2022-12-29 13:49 | MM ---
Reason for Exam: Screening (asymptomatic). Last mammogram was performed 1 year(s) and 1 month(s) ago. Patient History: Menarche at age 17. First Full-Term at age 29. Postmenopausal. Patient has history of breast feeding. Hormonal Contraceptives for 6 months. 06/27/2020, High risk Core Biopsy on the right side. 06/27/2020, High risk Core Biopsy on the right side. 04/27/2018, Benign Core Biopsy on the left side. Sister had breast cancer, age 62. Risk Values: Peyton 5 year model risk: 3.2%. NCI Lifetime model risk: 20.6%. Prior Study Comparison: 05/26/2020 Right Diagnostic Mammogram, [facility]. 03/26/2021 Right Diagnostic Mammogram, [facility]. 12/08/2021 Bilateral Screening Mammogram, [facility]. Tissue Density: There are scattered fibroglandular densities. Analyzed By CAD. Overall Assessment: Incomplete: need additional imaging evaluation, BI-RAD 0 Management: Diagnostic Breast Ultrasound of the right breast. Electronically signed and approved by: Renny Traylor M.D.
== END | disposition home or self-care (01) ==
LOC: RADMAMWWP 07:06
PROVIDERS: ATTEND Surgery
DX: Z12.31 Encounter for screening mammogram for malignant neoplasm of breast (principal); M85.89 Other specified disorders of bone density and structure, multiple sites; Z91.89 Other specified personal risk factors, not elsewhere classified; Z79.890 Hormone replacement therapy; Z78.0 Asymptomatic menopausal state; Z80.3 Family history of malignant neoplasm of breast
CPT/HCPCS: 77063; 77067; 77080

== ENCOUNTER → 2023-01-14 | Outpatient (CLI) | payer BC ==
--- NOTE | 2023-01-14 15:30 | USB ---
Reason for Exam: Additional evaluation requested from abnormal screening. Patient History: Menarche at age 17. First Full-Term at age 29. Postmenopausal. Patient has history of breast feeding. Hormonal Contraceptives for 6 months. 06/27/2020, High risk Core Biopsy on the right side. 06/27/2020, High risk Core Biopsy on the right side. 04/27/2018, Benign Core Biopsy on the left side. Sister had breast cancer, age 62. Risk Values: Peyton 5 year model risk: 3.2%. NCI Lifetime model risk: 20.6%. Technique: Method: Targeted. Prior Study Comparison: 03/26/2021 Right Diagnostic Mammogram, [facility]. 12/08/2021 Bilateral Screening Mammogram, [facility]. 12/29/2022 Bilateral MG 3D screening mammo w/cad, [facility]. Findings: The upper outer quadrant of the right breast, the axilla of the right breast and the retroareolar of the right breast were scanned. No solid or cystic masses are identified.. In retrospect nodular density upper outer quadrant was present on a study of 03/26/2021 and 06/27/2020. Precautionary six-month follow-up recommended. Overall Assessment: Probably benign, BI-RAD 3 Management: Diagnostic Mammogram of the right breast. A clinical breast exam by your physician is recommended on an annual basis and results should be correlated with mammographic findings. This exam should not preclude additional follow-up of suspicious palpable abnormalities. Results were given to the patient verbally at the time of exam. Electronically signed and approved by: Chencho Mckeon M.D. Radiologis
== END | disposition home or self-care (01) ==
LOC: RADUSWWP 14:55
PROVIDERS: ATTEND Surgery
DX: N63.10 Unspecified lump in the right breast, unspecified quadrant (principal); R92.8 Other abnormal and inconclusive findings on diagnostic imaging of breast; Z78.0 Asymptomatic menopausal state; Z80.3 Family history of malignant neoplasm of breast; Z98.890 Other specified postprocedural states

== ENCOUNTER → 2023-04-11 | Outpatient (CLI) | payer BC | END | disposition home or self-care (01) | LOC: RADMAMWWP 07:09 | PROVIDERS: ATTEND Surgery | DX: Z53.9 Procedure and treatment not carried out, unspecified reason (principal) ==

== ENCOUNTER → 2024-10-24 | Outpatient (CLI) | payer BC ==
--- NOTE | 2024-11-14 10:37 | MM ---
Reason for Exam: Additional evaluation requested from prior study. Last mammogram was performed 1 year(s) and 10 month(s) ago. Patient History: Menarche at age 17. First Full-Term at age 29. Postmenopausal. Patient has history of breast feeding. Hormonal Contraceptives for 6 months. 06/27/2020, High risk Core Biopsy on the right side. 06/27/2020, High risk Core Biopsy on the right side. 04/27/2018, Benign Core Biopsy on the left side. Sister had breast cancer, age 62. Risk Values: Peyton 5 year model risk: 3.5%. NCI Lifetime model risk: 19.8%. Prior Study Comparison: 02/19/2011 Bilateral Screening Mammogram, [facility]. 10/12/2013 Bilateral Screening Mammogram, [facility]. 10/16/2014 Bilateral Screening Mammogram, [facility]. 02/18/2018 Bilateral Screening Mammogram, [facility]. 03/06/2018 Left Diagnostic Mammogram, [facility]. 03/06/2018 Left Diagnostic Ultrasound, [facility]. 04/14/2018 Right Diagnostic Mammogram, [facility]. 11/03/2018 Left Diagnostic Mammogram, [facility]. 05/10/2019 Bilateral Screening Mammogram, [facility]. 05/12/2020 Bilateral Screening Mammogram, [facility]. 05/26/2020 Right Diagnostic Mammogram, [facility]. 03/26/2021 Right Diagnostic Mammogram, [facility]. 12/08/2021 Bilateral Screening Mammogram, [facility]. 12/29/2022 Bilateral MG 3D screening mammo w/cad, [facility]. 01/14/2023 Right US breast workup limited RT, [facility]. Tissue Density: There are scattered areas of fibroglandular density. Findings: Analyzed By CAD. Stable asymmetry lateral right breast posterior depth. Multiple biopsy clips are seen in the right breast and one biopsy clip in the left breast. No new suspicious masses, calcifications or distortions. Overall Assessment: Benign, BI-RAD 2 Management: Screening Mammogram of both breasts in 1 year. Results were given to the patient verbally at the time of exam. Patient should continue monthly self-breast exams. A clinical breast exam by your physician is recommended on an annual basis. This exam should not preclude additional follow-up of suspicious palpable abnormalities. Note on Peyton scores and lifetime risk: 1. A Peyton score greater than 3% is considered moderate risk. If this is the case, consider specialist referral to assess eligibility for a risk reducing agent. 2. If overall lifetime risk for the development of breast cancer is 20% or higher, the patient may qualify for future screening with alternating mammogram and breast MRI. [facility], , 10/24/2024 8:26 AM. Electronically signed and approved by: Reynaldo Cano DO
== END | disposition home or self-care (01) ==
LOC: RADMAMWWP 07:47
PROVIDERS: ATTEND Surgery
DX: R92.2 Inconclusive mammogram (principal); R92.323 Mammographic fibroglandular density, bilateral breasts; Z78.0 Asymptomatic menopausal state; Z80.3 Family history of malignant neoplasm of breast
CPT/HCPCS: 77062; 77066

== ENCOUNTER → 2025-01-23 | Outpatient (CLI) | payer BC ==
--- NOTE | 2025-01-23 11:12 | BD ---
EXAMINATION TYPE: Axial Bone Density DATE OF EXAM: 01/23/2025 CLINICAL HISTORY: 59 years old Female. ICD-10 CODE: Z79.811 USE [facility] AROMATASE THERAPY , Additi onal History: Height: 65.2 Weight: 277 FRAX RISK QUESTIONS: Family History (Parent hip fracture): yes, mother Glucocorticoids (More than 3mos): yes, seasonal asthma (Ex: prednisone, prednisolone, methylprednisolone, dexamethasone, and hydrocortisone). 3. Menopause before 45: no at 57 yrs RISK FACTORS HISTORY OF: ADH, seasonal asthma, anxiety MEDICATIONS: xanax, vit D EXAM MEASUREMENTS: Bone mineral densitometry was performed using the [employer] System. Bone mineral density as measured about the Lumbar spine is: ----- L1-L4(G/cm2): 1.081 T Score Values are as follows: ----- L1: -1.9 ----- L2: -1.1 ----- L3: -0.2 ----- L4: -0.3 ----- L1-L4: -0.8 Z Score Values are as follows: ----- L1: -2.0 ----- L2: -1.3 ----- L3: -0.4 ----- L4: -0.4 ----- L1-L4: -1.0 Bone mineral density has: Increased 4.3% since study of: 12.29.2022 Bone mineral density about the R hip (g/cm2): 1.016 Bone mineral density about the L hip (g/cm2): 0.961 T Score values are as follows: -----R Neck: -1.0 -----L Neck: -1.1 -----R Total: 0.1 -----L Total: -0.4 Z Score values are as follows: -----R Neck: -0.7 -----L Neck: -0.8 -----R Total: 0.0 -----L Total: -0.4 Bone mineral density has: Decreased -2.5% since study of: 12.29.2022 FRAX%s: The graph provided illustrates a 18.1% chance for a major osteoporotic fx and a 0.6% chance f or the hips probability for fx in 10 years time. IMPRESSION: Osteopenia (T Score between -2.5 and -1). There is slightly increased risk of fracture and the patient may be considered for treatment. Re-Screen 2-5 years. NOTE: T-SCORE=SD OF THE YOUNG ADULT MEAN. [facility], Workstation: 3, 01/23/2025 11:09 AM
== END | disposition home or self-care (01) ==
LOC: RADBDWWP 07:22
PROVIDERS: ATTEND Surgery
DX: M85.89 Other specified disorders of bone density and structure, multiple sites (principal); Z79.811 Long term (current) use of aromatase inhibitors
CPT/HCPCS: 77080